=== PATIENT | female | born 1980 | race Caucasian/White ===

== ENCOUNTER 2025-01-01 14:28 | Emergency (ER) | payer BC, SELFPAY ==
[2025-01-01 14:36] VITALS: BP 124/80; PULSE 82; RESP 16; TEMP 36.3; O2SAT 100
--- OUTSIDE RECORDS SUMMARY | 2025-01-01 14:37 | XMS_ITS | Encounter Summary ---
Author Organization [facility] Healthcare Address [address] [place] [id number] Care Team Providers Care Logging Equipment Operator Name Role Phone Isa Elizalde Primary Care Prov ider Encounter Details Date Type Department Care Team (Late st Contact Info) Description 11/30/2024 Results Follow-Up [facility] Emergency Department [address] [place] [address] Junie Gant PA [address] [place] [address] Urine culture Urine Social History Tobacco Use Types Packs/Day Years Used Date Smoking Tobacco: Former Cigarettes Q uit: 2020 Smokeless Tobacco: Never Comments:Smoking History Pac ks/day: 1 Packs Alcohol Use Standard Drinks/Week Comments Yes 0 (1 standard drink = 0.6 oz pur e alcohol) socially PHQ-2 Answer Date Recorded PHQ-2 Total Score (If total score is 3 or more points, staff should administer the PHQ-9) 0 10/16/2022 Personal Safety Answer Date Recorded Have you ever been in or are you currently in a harmful physical or emotional relationship or is someone making you feel afraid or unsafe? 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
--- OUTSIDE RECORDS SUMMARY | 2025-01-01 14:37 | XMS_ITS | Clinical Summary ---
Author Organization [facility] Address [address] [place] [address] Phone Care Team Providers Care Hemming And Tacking Machine Operator Name Role Phone German Gupta MD Unavailable Unavailab Isa Sorensen PAC Primary Care Pro vider Janeen Yadav MD Unavailable Allergies Active Allergy Reactions Criticality Noted Date Comments Amoxicillin Other (see Comments) 02/23/2020 States joints lock up and hard to move Patient stated she can taken this. Phenazopyridine Unknown 09/09/2021 Statins Other (see Comments) 01/16/2024 Joint pain Sulfanilamide Hives Medications naproxen (NAPROSYN) 500 MG Tablet Take 1 tab twice daily as needed for migraines. 12 Tab 02/25/2020 Active SUMAtriptan (Imitrex) 100 MG Tablet Take 1 Tab by mouth daily as needed for Migraine or Headaches. Use as directed. May repeat dose in 2 hours if headache recurs. 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 following Arthralgia 08/09/2018 Anxiety 07/12/2018 Unknown and unspecified causes of morbidity 02/12 Overview (02/25/2020): Overview: Migraine Resolved Problems Problem Noted Date Diagnosed Date Resolved Date Tobacco dependence 08/09/2018 0 Major depressive disorder, r ecurrent episode, moderate with anxious distress 08/08/2018 9 Depression 07/12/2018 07/08/2020 Left otitis media 06/28/2018 09/11/2019 Encounters Date Type Department Care Team Description 11/21/2024 8:45 AM CDT E-Visit [facility] - [place] [address] [place] [address] Isa Elizalde, [facility] E-Visit for Rash/Burn 11/21/2024 Travel from Last 3 Months Immunizations Immunization Administration Dates Next Due DTP Vaccine 01/05/1986, 2,1980,1980,1980 Hepatitis B Vaccine 07/31/2000,02/28/2000,1999 Influenza Vaccine, Quadrivalent, PF 03/16,02/23/2020,02/10/2019,2018 MMR Vaccine 01/16/1991,09/17/1981 OPV 01/05/1986, 2,1980,1980,1980 Pneumococcal Vaccine Adult - 23 Valent 02/10/2019 TD VACCINE 02/23/2020,10/12/1994 Family History Medical History Relation Name Comments Diabetes Father High Cholesterol Father High Cholesterol Mother Rheumatoid Arthritis Mother Bipolar Disorder Sister Depression Sister Relation Name Status Comments Father Alive Mother Alive Paternal Cousin first and se cond cousins committed suicide Sister Social History Tobacco Use Types Packs/Day Years Used Date Smoking Tobacco: Former Cigarettes Smokeless Tobacco: Never Tobacco Cessation:Counseling Given: No Alcohol Use Standard Drinks/Week Comments No 0 (1 standard drink = 0.6 oz pur e alcohol) [facility] Utilities Answer Date Recorded In the past 12 months has e electric, gas, oil, or water company threatened to shut off services in your home? No 07/14/2024 Social Connection and Isolation Panel Answer Date Recorded In a typical week, how many times do you talk on the phone with family, friends, or neighbors? Twice a week 07/14/2024 How often do you get togethe r with friends or relatives? Once a week 07/14/2024 How often do you attend chur ch or taoism services? More than 4 times per year 07/14/2024 Do you belong to any clubs o r organizations such as hinduism groups, unions, fraternal or athletic groups, or school groups? Yes 07/14/2024 How often do you attend meet ings of the clubs or organizations you belong to? 1 to 4 times per year 07/14/2024 Are you , , di vorced, , never , or living with a partner? Living with partner 07/14/2024 AUDIT-C Answer Date Recorded Q1: How often do you have a drink containing alc ohol? Monthly or less 07/14/2024 Q2: How many drinks containi ng alcohol do you have on a typical day when you are drinking? 1 or 2 07/14/2024 Q3: How often do you have si x or more drinks on one occasion? Never 07/14/2024 Overall Financial Resource Strain (CARDIA) Answe r Date Recorded How hard is it for you to pa y for the very basics like food, housing, medical care, and heating? Not hard at all 07/14/2024 PHQ-2 Answer Date Recorded Total Score - Questions 1-9 1 09/2024 [facility] - Occupational Stress Questionnaire Answer Date Recorded Do you feel stress - tense, restless, nervous, or anxious, or unable to sleep at night because your mind is troubled all the time - these days? Only a little 07/14/2024 Exercise Vital Sign Answer Date Recorde d On average, how many days pe r week do you engage in moderate to strenuous exercise (like a brisk walk)? 2 days 07/14/2024 On average, how many minutes do you engage in exercise at this level? 20 min 07/14/2024 Hunger Vital Sign Answer Date Recorded Within the past 12 months, y ou worried that your food would run out before you got the money to buy more. Never true 07/15/19 25 Within the past 12 months, t he food you bought just didn't last and you didn't have money to get more. Never true 07/14/2024 PRAPARE - Transportation Answer Date Re corded In the past 12 months, has l ack of transportation kept you from medical appointments or from getting medications? No 07/2024 In the past 12 months, has l ack of transportation kept you from meetings, work, or from getting things needed for daily living? No 07/14/2024 Housing Stability Vital Sign Answer Roshan e Recorded In the last 12 months, was t here a time when you were not able to pay the mortgage or rent on time? No 07/10/2023 In the last 12 months, how many places have you lived? 1 07/10/2023 In the last 12 months, was t here a time when you did not have a steady place to sleep or slept in a senior care (including now)? No 07/10/2023 Housing Stability Vital Sign Answer Roshan e Recorded In the last 12 months, was t here a time when you were not able to pay the mortgage or rent on time? No 07/14/2024 Number of Times Moved in the Last Year Not on fi le 07/14/2024 At any time in the past 12 m [facility], were you homeless or living in a senior care (including now)? No 07/14/2024 Education Answer Date Recorded What is the highest level of school you have completed or the highest degree you have received? Some college, no degree 12/20/2022 Sexually Active Control Partners Comments Yes Surgical Male Comments No Sex and Gender Information Value Date Recorded Sex Assigned at Female 06/11/2023 10:29 AM ADAPTIVE PHYSICAL EDUCATION TEACHER Legal Sex Female 7:25 PM CDT Gender Identity Female 06/11/2023 10:29 AM ADAPTIVE PHYSICAL EDUCATION TEACHER Sexual Orientation Straight 06/11/2023 10 :29 AM ADAPTIVE PHYSICAL EDUCATION TEACHER Last Filed Vital Signs Vital Sign Reading Time Taken Comments Blood Pressure 102/70 07/16/2024 3:36 PM ADAPTIVE PHYSICAL EDUCATION TEACHER Pulse 93 07/16/2024 3:36 PM ADAPTIVE PHYSICAL EDUCATION TEACHER Temperature 36.6 C (97.8 F) 07/16/2024 3:36 PM ADAPTIVE PHYSICAL EDUCATION TEACHER Respiratory Rate 12 07/16/2024 3:36 PM ADAPTIVE PHYSICAL EDUCATION TEACHER Oxygen Saturation 97% 07/16/2024 3:36 PM ADAPTIVE PHYSICAL EDUCATION TEACHER Inhaled Oxygen Concentration - - Weight 56.2 kg (124 lb) 07/16/2024 3:36 PM ADAPTIVE PHYSICAL EDUCATION TEACHER Height 162.6 cm (5' 4) 09/07/2023 3:21 PM CDT Body Mass Index 21.28 09/07/2023 3:21 PM CDT Plan of Treatment Upcoming Encounters Date Type Department Care Team (Late st Contact Info) Description 07/21/2025 3:30 PM CDT Office Visit [facility] [place] [address] [id number] Isa Elizalde, [facility] [address] [place] [address] Health Maintenance Due Date Last Done Comments Hepatitis C Virus (HCV) Screening 1980 Human Papillomavirus (HPV) Immunization (1 - 3-dose SCDM series) 2007 HPV/Cotest 2010 DTaP/Tdap/Td Immunization (6 - Tdap) 02/24/2020 02/23/2020, 10/12/1994, 01/05/1986, Additional history exists Cervical Cancer Screening (CCS) 07/27/2022 Pap Smear 07/27/2022 07/28/2019 SARS-COV-2 Immunization ( - season) 2024 Influenza Immunization (#1) 01/12/202503/16, 02/23/2020, 02/10/2019, Additional history exists Respiratory Syncytial Virus (RSV) Immunization (Adult) (1 - 1-dose 75+ series) 2055 Hepatitis B Immunization Completed 001, 02/28/2000, 01/31/2000 Pneumococcal Immunization Combined Aged Out 02/10/2019 No longer eligible based on patient's age to complete this topic Discussion re Starting/Frequency of Mammograms Completed 11/19/2021 Mammogram Discontinued 11/19/2021 Meningococcal Immunization (ACWY) Aged Out No longer eligible based on patient's age to complete this topic Rotavirus Immunization Aged Out No lo nger eligible based on patient's age to complete this topic Insurance [facility] Care Teams Hemming And Tacking Machine Operator Relationship Specialty Start Date End Date Isa Elizalde PAC [address] [place] [address] PCP - General Physician Clerk Entry Level 01/08/23 German Gupta MD Consulting Physician Obstetrics & Gynecology 02/10/19 Janeen Yadav MD [address] [address] Consulting Physician Endocrinology 07/20/23
--- OUTSIDE RECORDS SUMMARY | 2025-01-01 14:37 | XMS_ITS | Clinical Summary ---
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 07/29/19 23 Active modafiniL (PROVIGIL) 200 mg tablet TAKE 1 TABLET BY MOUTH IN THE MORNING AND 1 TABLET AT NOON DIRECTED 08/10/19 23 Active atorvastatin (LIPITOR) 20 mg tablet Atorvastatin Calcium 20 MG Oral Tablet QTY: 0 tablet Days: 30 Refills: 0 Written: 06/14/20 Patient Instructions: 1 tab daily 06/14/19 21 Active betamethasone dipropionate (DIPROSONE) 0.05 % ointmentIndicati ons:Skin Inflammation Apply topically 2 (two) times a day 30 g 1 10/19/19 24 Active Additional Information Patient not taking.Reported on 08/11/2024 estradioL (ESTRACE) 0.01 % (0.1 mg/gram) vaginal creamIndications :Postmenopausal atrophic vaginitis Insert 1/2 gram twice weekly intravaginally as needed 42.5 g 1 08/12/19 25 Active cream base no.52, bulk, creamIndications :Low libido Testosterone Cream 0.3% apply 1 mL to inner thigh daily. 30 g 11 08/12/19 25 Active cephalexin (KEFLEX) 500 mg capsule Take 1 capsule (500 mg total) by mouth 4 (four) times a day for 10 days 40 capsule 11/29/19 25 025 Active Problems Problem Noted Date Diagnosed Date Vaping nicotine dependence, non-tobacco product 12/31/2023 Abnormal thyroid blood test 12/12/2022 Assessment & Plan (12/12/2022 2:17 PM CDT): Abnormal TFT TSH of 0.22 with free T4 of 0.82 on 10/16/22 Patient is clinically euthyroid No thyromegaly This could be normal fluctuation - euthyroid sick, or early hyperthyroidism Plan: The abnormal lab reviewed and explained to patient We will check TFT today Follow up and further recommendation will be decided after we obtain above test results Cervical high risk HPV (human papillomavirus) te st positive 12/26/2021 Endometriosis of pelvic peritoneum 01/02/2018 Depression 09/02/2014 Overview (08/19/2016): Depression Mixed anxiety depressive disorder 06/26/2012 Overview (08/17/2016): Anxiety and depression Migraine 03/07/2012 Overview (08/17/2016): Migraine Resolved Problems Problem Noted Date Diagnosed Date Resolved Date Encounter for female sterilization procedure 8 12/26/2021 Overview (12/29/2017): Added automatically from request for surgery [id number] Severe dysplasia of cervix 01/01/2017 0 12/31/2023 Encounters Date Type Department Care Team Description 11/30/2024 Results Follow-Up [facility] Emergency Department [address] [place] [address] Junie Gant PA Urine culture Urine 11/28/2024 7:03 PM CDT - 11/28/2024 9:46 PM CDT Emergency [facility] Emergency Department [address] [place] [address] Acute cystitis without hematuria (Primary Dx) Discharge Disposition: Discharge to home or self care from Last 3 Months Surgical History Surgery Date Site/Laterality Comments OTHER SURGICAL HISTORY 05/14/2013 - 05/13/2014 : COLPOSCOPY PELVIC LAPAROSCOPY TONSILECTOMY, ADENOIDECTOMY, BILATERAL MYRINGOTOMY AND TUBES CERVICAL BIOPSY W/ LOOP ELECTRODE EXCISION 01/01/2017 SALPINGECTOMY 01/02/2018 Laparoscopic bilateral midsegmental with Filshie clips and fulgeration of endometriosis Medical History Medical History Date Comments Hx Other Medical migraines Hx Other Medical exploratory due endometriosis Hx Other Medical Hx of gonorrhea History of abnormal cervical Papanicolaou smear Abnormal PAP Anxiety disorder Anxiety Depression Depression Hx Other Medical ; Outc ome: 4lb(s) 9 oz Male Abnormal Pap smear of cervix HPV (human papilloma virus) infection Endometriosis Migraine STI (sexually transmitted infection) Varicella Family History Medical History Relation Name Comments Hyperlipidemia Father Hyperlipidemi a; Hypertension Mother Hypertension; Breast cancer Neg Hx Colon cancer Neg Hx Ovarian cancer Neg Hx Uterine cancer Neg Hx Relation Name Status Comments Father Mother Social History Tobacco Use Types Packs/Day Years Used Date Smoking Tobacco: Former Cigarettes Q uit: 2020 Smokeless Tobacco: Never Tobacco Cessation:Counseling Given: Not Answered Comments:Smoking History Packs/day: 1 Packs Alcohol Use Standard Drinks/Week Comments [...] on file Legal Sex 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 Gender Identity Not on file Sexual Orientation Not on file 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 Not on file Not on file Not on file Obstetrics History Para Term AB IAB SAB Ectopic Multiple Livin g Live Births 1 1 1 1 1 Date Outcome GA Total Labor Labor/2nd/3rd Weight Sex Type Anes PTL Payton A1 A5 Name Clin 2013 Term 37w 0d 2.07 kg (4 lb 9 oz) M Vag-S pont Living Complications:None Last Filed Vital Signs Vital Sign Reading Time Taken Comments Blood Pressure 98/68 11/28/2024 9:30 PM CDT Pulse 97 11/28/2024 9:30 PM CDT Temperature 37.8 C (100 F) 11/28/2024 5:47 PM CDT Respiratory Rate 18 11/28/2024 5:47 PM CDT Oxygen Saturation 95% 11/28/2024 9:30 PM CDT Inhaled Oxygen Concentration - - Weight 53.5 kg (118 lb) 11/28/2024 5:47 PM CDT Height 162.6 cm (5' 4) 11/28/2024 5:47 PM CDT Body Mass Index 20.25 11/28/2024 5:47 PM CDT Plan of Treatment Health Maintenance Due Date Last Done Comments HPV Vaccines (1 - 3-dose SCDM series) 2007 DTaP/Tdap/Td Vaccine (6 - Tdap) 02/24/2020 02/23/2020, 10/12/1994, 01/05/1986, Additional history exists Breast Cancer Screening-Mammogram 11/19/2022 11/19/2021, 11/19/2021 Depression Screening 10/17/2023 10/16/2022, 09/09/2021, 01/28/2019, Additional history exists Regular Well Visit/Exam 18-64 10/18/2024 10/19/2023, 10/16/2022, 09/09/2021, Additional history exists Influenza Vaccine (#1) 2025 , 02/23/2020, 02/10/2019, Additional history exists Cervical Cancer Screening 08/11/20252024, 10/19/2023, 10/16/2022, Additional history exists Hepatitis B Screening Completed 07/31/2000 , 02/28/2000, 01/31/2000 Hepatitis C Screening Completed 03/07/2013 Pneumococcal vaccine <65 Aged Out 02/10/2019 No longer eligible based on patient's age to complete this topic Procedures Procedure Name Priority Date/Time Associated Diagnosis Comments SEPSIS LACTATE WITH REFLEX STAT 11/28/2024 7:24 PM CDT TRICHOMONAS VAGINALIS PCR STAT 11/28/2024 7:24 PM CDT N. GONORRHOEAE/C. TRACHOMATIS AMPLIFICATION STAT 11/28/2024 7:24 PM CDT ECG 12-LEAD Routine 11/28/2024 7:21 PM CDT POCT HCG, URINE Routine 11/28/2024 7:06 PM CDT URINALYSIS, MICROSCOPIC ONLY STAT 11/28/2024 6:24 PM CDT URINE CULTURE STAT 11/28/2024 6:24 PM CDT URINALYSIS AND REFLEX TO MICROSCOPIC AND CULTURE STAT 11/28/2024 6:24 PM CDT EGFR STAT 11/28/2024 5:55 PM CDT DIFFERENTIAL AUTO STAT 11/28/2024 5:5 5 PM CDT LIPASE STAT 11/28/2024 5:55 PM CDT COMPREHENSIVE METABOLIC PANEL STAT 11/28/2024 5:55 PM CDT CBC WITH AUTO DIFFERENTIAL STAT 11/28/2024 5:55 PM CDT PAP AND HPV, REFLEX TO HPV GENOTYPES Routine 08/11/2024 4:09 PM CDT Cervical high risk HPV (human papillomavirus) test positive SCREENING MAMMOGRAM BILATERAL W LIANA Schedule Routine, Read Routine (OP Routine) 11/19/2021 10:44 AM CDT Well woman exam with routine gynecological exam Encounter for screening mammogram for breast cancer SERUM HEPATITIS C AB Routine 03/07/2013 5:53 AM CDT from Last 3 Months or Most Recently Relevant to Health Maintenance Results * N. gonorrhoeae/C. trachomatis Amplification Urine (11/28/2024 7:24 PM CDT) C. trachomatis Not Detected Not Detected N. gonorrhoeae Not Detected Not Detected [facility] ([place]) Comment: Interpretive Data This assay detects Chlamydia trachomatis and Neisseria gonorrhoeae by nucleic acid amplification testing (NAAT). This assay has been cleared by the [place] Food and Drug administration. The performance characteristics of this test have been verified by the [facility]. The performance characteristics of this test have not been evaluated in individuals less than 14 years of age. Current Interpretive Data last revised 2023. Urine (None) 11/28/2024 7:24 PM CDT 11/28/2024 7:38 PM CDT [facility] MICROBIOLOGY - GENERAL NELL CEDENO Final Result [facility]NA D[facility] ([place]) 1 [facility] Department of Laboratories [place], [place] [id number] * Trichomonas vaginalis PCR Urine (11/28/2024 7:24 PM CDT) Trichomonas DNA Not Detected Not Detected Urine 11/28/2024 7:24 PM CDT 11/28/2024 7:38 PM CDT Narrative [facility] ([place]) - 11/28/2024 8:50 PM CDT Interpretive Data: This assay detects Trichomonas vaginalis by nucleic acid amplification testing (NAAT). This assay has been cleared by the [place] Food and Drug administration. The performance characteristics of this test have been verified by the [facility] laboratory. Excess blood in specimens may be inhibitory and result in false negative results. The performance of this test has not been evaluated in women or individuals less than 18 years of age. [facility] MICROBIOLOGY - GENERAL ORDE RABLES Final Result Performing Organization Address [facility] [address]/ZIP Co de Phone Number [facility]NA DUE[facility]AS ([place]) 1 [facility] [place] [address] * Sepsis Lactate w/ Reflex (11/28/2024 7:24 PM CDT) Sepsis Lactate 1.2 0.7 - 2.0 mmol/L Blood 11/28/2024 7:24 PM CDT 11/28/2024 7:37 PM CDT [facility] BLOOD ORDERABLES Final Resu lt Performing Organization Address [facility] [address]/[facility] de Phone Number RAYNA DUE[facility]AS ([place]) [address] [place] [address] * ECG 12 lead (11/28/2024 7:21 PM CDT) 11/28/2024 7:21 PM CDT Narrative [facility] - 11/29/2024 2:49 PM CDT Vent Rate: 113 bpm RR Interval: 527 msec AR Interval: 126 msec QRS Duration: 90 msec QT Interval: 326 msec QTC Interval: 393 msec P-R-T [place]: 42 - 2 - 54 degrees IMPRESSION: SINUS TACHYCARDIA ABNORMAL RHYTHM ECG Electronically Signed By: Darryl Lewis MD [facility] ECG ORDERABLES Final Result Performing Organization Address [facility] [address]/[facility] Co de Phone Number [facility] [employer] [facility] * POCT hCG, urine (11/28/2024 7:06 PM CDT) HCG, ur, POC Negative Negative Lot Number [id number] QC Backgroud Clear Acceptable QC Control Line Acceptable Urine 11/28/2024 7:06 PM CDT Ezra Cabrera MD POINT OF CARE TEST ORDERABLES Final Result * (ABNORMAL) Urinalysis reflex to microscopic and culture Urine (11/28/2024 6:24 PM CDT) Color, ur Dark-Yellow Clarity, ur Turbid(A) Clear [facility] ([place]) Specific gravity, ur 1.016 1.003 - 1.030 [facility] ([place]) pH, urine 6.5 [facility] ([place]) Comment: Interpretive Data U rine pH is affected by diet, medications, systemic acid-base disturbances, and renal tubular function. pH may affect urinary stone formation. For example, urine pH below 6.0 may help reduce the tendency for calcium phosphate stones and pH greater than 6.0 may reduce the tendency for uric acid stone formation. Source: [facility] Current Interpretive Data was last revised on 2017 Protein, ur ql 2+(A) Negative [facility] ([place]) Glucose, ur ql Negative Negative [facility] ([place]) Ketones, ur Negative Negative [facility] ([place]) Bilirubin, ur Negative Negative [facility] ([place]) Blood, ur 1+(A) Negative [facility] ([place]) Urobilinogen, ur <2.0 <2.0 mg/dL [facility] ([place]) Nitrite, ur Negative Negative [facility] ([place]) Leukocyte esterase, ur 4+(A) Negative [facility] ([place]) UA reflex comment Reflex to microscopic UA will be performed. [facility] ([place]) Urine 11/28/2024 6:24 PM CDT 11/28/2024 6:26 PM CDT Ezra Cabrera MD LAB MICROBIOLOGY - GENERAL ORDERABLES Final Result [facility] ([place]) 1 [facility] Department [place] [address] * (ABNORMAL) Urinalysis, microscopic only (11/28/2024 6:24 PM CDT) WBC, ur >50(A) 0 - 5 /HPF RBC, ur 6-10(A) 0 - 2 /HPF [facility] ([place]) Bacteria, ur 2+(A) [facility] ([place]) Mucous, ur Present(A) [facility] ([place]) Culture Reflex Comment Reflex to urine culture will be performed. [facility] ([place]) Urine 11/28/2024 6:24 PM CDT 11/28/2024 6:26 PM CDT us Ezra Cabrera MD LAB URINE ORDERABLE S Final Result [facility] ([place]) 1 [facility] [place] [address] * (ABNORMAL) Urine culture Urine (11/28/2024 6:24 PM CDT) Report Final Report: Greater than or equal to 100,000 colonies/mL of Escherichia coli (.) Comment:Testing performed by : [facility], [address] [place]., [address] Organism ESCHERICHIA COLI [facility] ([place]) Urine 11/28/2024 6:24 PM CDT 11/29/2024 12:16 AM CDT Narrative [facility] ([place]) - 11/30/2024 3:49 PM CDT Urine culture reflexed based upon urinalysis results. Testing performed by [facility] ([phone]) Organism Antibiotic Method Susceptibility Escherichia coli Ampicillin INTERPRETATION Resistant Escherichia coli Cefazolin INTERPRETATION Susceptible Escherichia coli Nitrofurantoin INTERPRETATION Susceptible Escherichia coli Gentamicin INTERPRETATION Susceptible Escherichia coli Trimethoprim with Sulfamethoxazole IN TERPRETATION Susceptible Escherichia coli Meropenem INTERPRETATION Susceptible Escherichia coli Cefepime INTERPRETATION Susceptible Escherichia coli Ciprofloxacin INTERPRETATION Susceptible Escherichia coli Ceftazidime INTERPRETATION Susceptible Escherichia coli Ceftriaxone INTERPRETATION Susceptible Escherichia coli Piperacillin/Tazobactam INTERPRETATIO N Susceptible Escherichia coli Cephalexin INTERPRETATION Susceptible Escherichia coli Cefuroxime-axetil INTERPRETATION Susceptible Escherichia coli Cefdinir INTERPRETATION Susceptible us Ezra Cabrera MD LAB MICROBIOLOGY - GENERAL ORDERABLES Final Result [facility] ([place]) 1 [facility] General [place] [address] * eGFR (11/28/2024 5:55 PM CDT) eGFR 87 >=60 mL/min/1. 73 m2 Comment: Interpretive Data Reference Interval Normal >/= 90 mL/min/1.73m2 Mildly decreased* 60 - 89 mL/min/1.73m2 Mildly to moderately decreased 45 - 59 mL/min/1.73m2 Moderately to severely decreased 30 - 44 mL/min/1.73m2 Severely decreased 15 - 29 mL/min/1.73m2 Kidney Failure < 15 mL/min/1.73m2 *Relative to young adult level Estimated glomerular filtration rate is determined by the 2020 CKD-EPI equation recommended by the National Kidney Foundation (A Unifying Approach to GFR Estimation: Recommendations of the NKF-ASK Task Force on Reassessing the Inclusion of Race in Diagnosing Kidney Disease, JASN 2020). The CKD-EPI equation should not be used for patients with unstable renal function and has not been validated in children and those over 70. Current interpretive data was last reviewed 2021. Blood 11/28/2024 5:55 PM CDT 11/28/2024 5:58 PM CDT us Ezra Cabrera MD LAB BLOOD ORDERABLE S Final Result [facility] ([place]) 1 [facility] [place] [address] * (ABNORMAL) Differential, auto (11/28/2024 5:55 PM CDT) Neutrophil abs 6.16 1.50 - 6.50 K/cumm Imm gran abs 0.01 0.00 - 0.10 K/cumm [facility] ([place]) Lymphocyte abs 1.02 0.80 - 3.30 K/cumm [facility] ([place]) Monocyte abs 0.16(L) 0.20 - 0.80 K/cumm [facility] ([place]) Eosinophil abs 0.00 0.00 - 0.50 K/cumm [facility] ([place]) Basophil abs 0.02 0.00 - 0.10 K/cumm [facility] ([place]) Neutrophil pct 83.6 % [facility] ([place]) Comment: Interpretive Data Percent cell count reference ranges are not reported, since discordance with absolute values may lead to misinterpretation of CBC data. Current Interpretive Data was last revised on 2017. Imm gran pct 0.1 % [facility] ([place]) Comment: Interpretive Data Percent cell count reference ranges are not reported, since discordance with absolute values may lead to misinterpretation of CBC data. Current Interpretive Data was last revised on 2017. Lymphocyte pct 13.8 % [facility] ([place]) Comment: Interpretive Data Percent cell count reference ranges are not reported, since discordance with absolute values may lead to misinterpretation of CBC data. Current Interpretive Data was last revised on 2017. Monocyte pct 2.2 % [facility] ([place]) Comment: Interpretive Data Percent cell count reference ranges are not reported, since discordance with absolute values may lead to misinterpretation of CBC data. Current Interpretive Data was last revised on 2017. Eosinophil pct 0.0 % [facility] ([place]) Comment: Interpretive Data Percent cell count reference ranges are not reported, since discordance with absolute values may lead to misinterpretation of CBC data. Current Interpretive Data was last revised on 2017. Basophil pct 0.3 % [facility] ([place]) Comment: Interpretive Data Percent cell count reference ranges are not reported, since discordance with absolute values may lead to misinterpretation of CBC data. Current Interpretive Data was last revised on 2017. Blood 11/28/2024 5:55 PM CDT 11/28/2024 5:58 PM CDT Ezra Cabrera MD LAB BLOOD ORDERABLE S Final Result [facility] ([place]) 1 [facility] Department [place] [address] * CBC with auto differential (11/28/2024 5:55 PM CDT) WBC 7.37 3.80 - 9.90 K/cumm Hgb 13.1 11.9 - 15.5 g/dL [facility] ([place]) Hct 39.5 35.6 - 45.5 % [facility] ([place]) Plt 167 150 - 400 K/cumm [facility] ([place]) MPV 9.9 9.1 - 12.3 fL [facility] ([place]) RBC 4.29 3.90 - 5.20 M/cumm [facility] ([place]) MCV 92.1 81.3 - 96.4 fL [facility] ([place]) MCH 30.5 27.1 - 33.3 pg [facility] ([place]) MCHC 33.2 32.3 - 35.7 g/dL [facility] ([place]) RDW CV 12.8 11.1 - 14.9 % [facility] ([place]) RDW SD 43.4 35.7 - 48.1 fL [facility] ([place]) NRBC abs 0.00 0.00 - 0.01 K/cumm [facility] ([place]) Blood Venous blood specimen / Unknown 11/28/2024 5:55 PM CDT 11/28/2024 5:58 PM CDT us Ezra Cabrera MD LAB BLOOD ORDERABLE S Final Result [facility] ([place]) 1 [facility] Department [place] [address] * Lipase (11/28/2024 5:55 PM CDT) Lipase 26 10 - 99 Units/L [facility] ([place]) Blood Venous blood specimen / Unknown 11/28/2024 5:55 PM CDT 11/28/2024 5:58 PM CDT us Ezra Cabrera MD LAB BLOOD ORDERABLE S Final Result [facility] ([place]) 1 [facility] Department [place] [address] * Comprehensive metabolic panel (11/28/2024 5:55 PM CDT) Sodium 138 135 - 145 mmol/L [facility] ([place]) Potassium, pl 4.2 3.3 - 4.9 mmol/L [facility] ([place]) Chloride 104 97 - 110 mmol/L [facility] ([place]) CO2 25 22 - 32 mmol/L [facility] ([place]) Anion gap 9 2 - 15 mmol/L [facility] ([place]) BUN 8 6 - 25 mg/dL [facility] ([place]) Creatinine 0.85 0.60 - 1.10 mg/dL [facility] ([place]) Glucose 149 70 - 199 mg/dL [facility] ([place]) Comment: Interpretive Data Fasting glucose >/= 126 mg/dl is diagnostic for diabetes. Fasting is defined as no caloric intake for at least 8 hours. Fasting glucose between 100 mg/dl to 125 mg/dl is diagnostic of prediabetes. In a patient with classic symptoms of hyperglycemia or hyperglycemic crisis, a random glucose >/= 200 mg/dl is diagnostic for diabetes. In the absence of unequivocal hyperglycemia, results should be confirmed by repeat testing. The classification and Diagnosis of Diabetes Diabetes Care 2021; 46: S19-S40. Current interpretive data was last revised 2022. Calcium 9.0 8.5 - 10.3 mg/dL [facility] ([place]) Bilirubin, total 0.4 0.1 - 1.2 mg/dL [facility] ([place]) Protein, pl 6.5 6.5 - 8.5 g/dL [facility] ([place]) Albumin 4.0 3.5 - 5.0 g/dL [facility] ([place]) Alk phos 98 40 - 130 Units/L [facility] ([place]) ALT 31 7 - 45 Units/L [facility] ([place]) AST 18 10 - 45 Units/L [facility] ([place]) Blood Venous blood specimen / Unknown 11/28/2024 5:55 PM CDT 11/28/2024 5:58 PM CDT Ezra Cabrera MD LAB BLOOD ORDERABLE S Final Result [facility]UE[facility] ([place]) 1 [facility] Department [place] [address] * Pap and HPV, reflex to HPV Genotypes (08/11/2024 4:09 PM CDT) CLINICAL INFORMATION: [facility] Comment:Postmenopausal LMP [facility] Comment:POSTMENOPAUSAL Previous Pap [facility] Comment:NONE GIVEN Prev. Bx [facility] Comment:NONE GIVEN SOURCE: [facility] Comment:Cervix, Endocervix Pap, specimen adequacy [facility] Comment: Satisfactory for evaluation. Endocervical/transformation zone component present. HPV interp [facility] Comment: Cytology Results: Negative for intraepithelial lesion or malignancy. COMMENTS [facility] Comment: This Pap test has been evaluated with computer assisted technology. Extrusion Technician Que [facility] Comment: LISA, CT(ASCP) CT screening location: [place] [address] [place] [address] Review metalsmith helper [facility] Comment: TMK, CT(ASCP) CT screening location: [place] [address] [place] [address] Comment [facility] Comment: EXPLANATORY NOTE: The Pap is a screening test for cervical cancer. It is not a diagnostic test and is subject to false negative and false positive results. It is most reliable when a satisfactory sample, regularly obtained, is submitted with relevant clinical findings and history, and when the Pap result is evaluated along with historic and current clinical information. Human papillomavirus DNA, High Risk E6/E7 Not Detected NOT DETECTED [facility] Comment: Not Detected High Risk HPV types (16,18,31,33,35,39,45,51,52, 56,58,59,66,68) were not detected. Other HPV types which cause anogenital lesions may be present. The significance of the other types of HPV in malignant processes has not been established. Methodology: Real Time PCR Thin prep-Endocervica l 08/11/2024 4:09 PM CDT 08/12/2024 4:21 AM CDT German Gupta MD LAB CYTOLOGY ORDERABLES Fi nal Result [facility] [address] [place] [address] [facility] [address] [place] [address] * (ABNORMAL) SCREENING MAMMOGRAM BILATERAL W LIANA (11/19/2021 10:44 AM CDT) Anatomical Region Laterality Modality Breast Bilateral Mammography 11/21/2021 6:10 PM CDT Impressions 11/21/2021 6:10 PM CDT Right lower inner breast mass and right lower breast MLO view asymmetry. Recommend right breast diagnostic mammography and ultrasound for further evaluation. No evidence of malignancy in the left breast. Recommend left breast screening mammography in one year. BI-RADS: 0 - Additional imaging evaluation is necessary. The patient will be contacted. Electronically signed by: Rubio Bhakta M.D. Narrative 11/21/2021 6:10 PM CDT EXAMINATION: SCREENING MAMMOGRAM BILATERAL W LIANA ORDERING HEALTHCARE PROVIDER: RENEE GUIDO HISTORY: Routine screening mammography. COMPARISON: None available. Baseline screening mammogram TECHNIQUE: CC and MLO views of the bilateral breasts were obtained with digital technique using breast tomosynthesis with C view. Computer aided detection was utilized. FINDINGS: DENSITY: The tissue of the bilateral breasts is heterogeneously dense, which may obscure small masses. BREASTS: In the lower inner right breast at middle depth, there is an equal density 5 mm mass at middle depth. On the MLO view there is an asymmetry in the lower right breast at anterior to middle depth. There are no suspicious masses, suspicious calcifications, or other suspicious findings in the left breast. Renee Guido [employer] SALESPERSON IMG MAMMO PROCEDURES Final Resul t * Serum Hepatitis C ab (03/07/2013 5:53 AM CDT) HCV ab NON-REACTI VE NON-REACTI VE HISTORICAL RESULTS Hepatitis signal to cutoff ratio 0.04 <1.00 HISTORICAL RESULTS Serum 03/07/2013 5:53 AM CDT Narrative HISTORICAL RESULTS - 03/12/2013 11:00 AM CDT Test performed at [facility] [address] [address] [place] [address] Director: TRISTEN ROBB DO,MPH us Historical Provider LAB BLOOD ORDERABLES Krystal pollack Result HISTORICAL RESULTS from Last 3 Months or Most Recently Relevant to Health Maintenance [place] Directives For more information, please contact: [phone] * Full Code (Latest Code Status on File) Date Activated Date Inactivated Comments 01/02/2018 1:54 PM 01/02/2018 6:11 PM Care Teams Needle Bar Molder Relationship Specialty Start Date End Date Isa Elizalde PA PCP - General Neurosurgery 10/25/22
--- OUTSIDE RECORDS SUMMARY | 2025-01-01 14:37 | XMS_ITS | Encounter Summary ---
Author Organization [facility] Address [address] [place] [address] Phone Care Team Providers Care Solar Fabrication Technician Name Role Phone Royce Santiago PAC Primary Care Provider U German Springer MD Unavailable Unavailab le Provider, None Primary Care Provider Unavailabl Isa Rodrigues PAC Primary Care Pro vider Janeen Yadav MD Unavailable Reason for Visit * Reason Comments Medication Refill Encounter Details Date Type Department Care Team (Late st Contact Info) Description 04/22/2020 Refill [facility] - Primary Care - [place] [address] [place] [id number] Tracy Pressley, DIGITAL MARKETING ASSISTANT, KINDERGARTEN TEACHER [address] [place] [address] Medication Refill Social History Tobacco Use Types Packs/Day Years Used Date Smoking Tobacco: Former Cigarettes Smokeless Tobacco: Never Alcohol Use Standard Drinks/Week Comments No 0 (1 standard drink = 0.6 oz pur e alcohol) PHQ-2 Answer Date Recorded Total Score - Questions 1-9 15 07/14 Sexually Active Control Partners Comments Yes Surgical Male Comments No Sex and Gender Information Value Date Recorded Sex Assigned at Female 06/11/2023 10:29 AM BOBBIN HANDLER Legal Sex Female 7:25 PM CDT Gender Identity Female 06/11/2023 10:29 AM BOBBIN HANDLER Sexual Orientation Straight 06/11/2023 10 :29 AM BOBBIN HANDLER COVID-19 Exposure Response Date Recorded In the last month, have you been in contact with someone who was confirmed or suspected to have Coronavirus / COVID-19? No / Unsure 03/24/2020 4:39 PM BOBBIN HANDLER documented as of this encounter Plan of Treatment Upcoming Encounters Date Type Department Care Team (Late st Contact Info) Description 07/21/2025 3:30 PM CDT Office Visit [facility] - Primary Care - [place] [address] [place] [address] Isa Elizalde PAC [address] [place] [address] documented as of this encounter Visit Diagnoses Not on filedocumented in this encounter Additional Health Concerns Infection Onset Date Last Indicated Resolved Time Respiratory Rule Out - RPA 02/21/2023 02/21/2023 1 1:51 PM CDT COVID - 19 Confirmed 02/21/2023 02/21/2023 023 12:16 AM CDT COVID - 19 02/25/2023 02/25/2023 03/07/2023 12:1 6 AM CDT COVID - 19 06/27/2023 06/27/2023 07/07/2023 12:1 6 AM BOBBIN HANDLER Assessment Noted Time PHQ-9 Depression Total Score: 15 020 3:00 PM CDT documented as of this encounter Care Teams Solar Fabrication Technician Relationship Specialty Start Date End Date Royce Santiago PAC PCP - General Physician Transmission System Operator 08/08/18 02/22/22 Provider, None [place] PCP - General 02/23/22 01/07/23 Isa Elizalde PAC [address] [place] [address] PCP - General Physician Transmission System Operator 01/08/23 German Gupta MD Consulting Physician Obstetrics & Gynecology 02/10/19 Janeen Yadav MD [address] [address] Consulting Physician Endocrinology 07/20/23 documented as of this encounter
--- NOTE | 2025-01-01 14:48 | ED.SKABFB ---
HPI - Skin/Abscess/Foreign Bdy General Chief complaint: Skin/Abscess/Foreign Body Stated complaint: Rash Time Seen by Provider: 01/01/25 14:48 Source: patient Mode of arrival: ambulatory Limitations: no limitations History of Present Illness HPI narrative: Patient reports poison soniya rash for 3 days. Started after pulling weeds in her yd. Taking Zyrtec without relief. See your doctor if not improving. Related Data Allergies Allergy/AdvReac Type Severity Reaction Status Date / Time Sulfa (Sulfonamide Allergy Intermediate Hives Verified 01/01/25 14:45 Antibiotics) PMFSH Comments At time of signature, agree with nursing past medical, surgical, social and family history. There is no relevant family history pertinent to the presenting complaint. Exam Narrative: GENERAL: This is a well-nourished, well-developed patient, in no apparent distress. HEAD: normocephalic, atraumatic. EYES: PERRL. Sclera clear/white. Vision is grossly intact. EARS: External ears normal NOSE: External nose normal NECK: Neck supple, non-tender without lymphadenopathy, masses or thyromegaly. CARDIOVASCULAR: Regular rate and rhythm without murmurs, gallops, or rubs. RESPIRATORY: Clear to auscultation. Breath sounds equal bilaterally. No wheezes, rales, or rhonchi. SKIN: warm, Dry, intact with, good texture and turgor. Erythematous vesicular rash to bilateral hands, trunk NEURO: awake, alert, and oriented to person, place and time. There were no obvious focal neurologic abnormalities. EXTREMITIES: No joint tenderness, effusion, or edema noted. Course Course Level of Care: Express Care Visit Vital Signs Vital signs: Vital Signs Temperature 36.3 C L 01/01/25 14:36 Pulse Rate 82 01/01/25 14:36 Respiratory Rate 16 01/01/25 14:36 Blood Pressure 124/80 01/01/25 14:36 Pulse Oximetry 100 01/01/25 14:36 Oxygen Delivery Room Air 01/01/25 14:36 Temperature 36.3 C L 01/01/25 14:36 Pulse Rate 82 01/01/25 14:36 Respiratory Rate 16 01/01/25 14:36 Blood Pressure 124/80 01/01/25 14:36 Pulse Oximetry 100 01/01/25 14:36 Oxygen Delivery Room Air 01/01/25 14:36 reviewed MDM - Skin/Abscess/Foreign Bdy MDM Narrative Medical decision making narrative: will treat poison soniya rash with prednisone taper, triamcinolone. Patient agrees with plan of care. Differential Diagnosis Differential diagnosis: Likely contact dermatitis Discharge Plan Discharge Clinical Impression: Dermatitis due to plants, including poison soniya, sumac, and oak Patient Disposition: Home Condition: Stable Instructions: Poison Soniya (ED) Additional Instructions: Take prednisone as prescribed. Apply prescription steroid cream sparingly to affected areas. Avoid face. Continue taking Zyrtec daily. See your doctor if not improving. Patient Language: Macedonian Prescriptions: New prednisone 10 mg tablet See Rx Instructions .ROUTE .COMPLEX Qty: 42 0RF Rx Instructions: Take 6 tablets for 2 days Take 5 tablets for 2 days Take 4 tablets for 2 days Take 3 tablets for 2 days Take 2 tablets for 2 days Take 1 tablet for 2 days triamcinolone acetonide 0.1 % cream 1 applic topical BID Qty: 30 0RF Follow-up/Referrals: Tonio,JESSY oMss [Primary Care Provider, Unknown] Time of Disposition: 14:55
== END 2025-01-01 15:02 | disposition home or self-care (01) ==
PROVIDERS: Emergency Provider Nurse Practitioner Family; PCP Physician Assistant
DX: L23.7 Allergic contact dermatitis due to plants, except food (principal)
CPT/HCPCS: 99203; G0463